=== PATIENT | female | born 1950 | race Two or more races ===

== ENCOUNTER 2018-05-06 10:16 | Outpatient (CLI) | payer OTHER | END 2018-05-06 10:34 | disposition home or self-care (01) | LOC: SONOGRAMA 10:16 | DX: E04.2 Nontoxic multinodular goiter (principal); M25.572 Pain in left ankle and joints of left foot ==

== ENCOUNTER 2018-11-26 08:58 | Outpatient (CLI) | payer OTHER | END 2018-11-26 09:02 | disposition home or self-care (01) | LOC: LAB 08:58 | DX: E03.8 Other specified hypothyroidism (principal); E78.2 Mixed hyperlipidemia; E11.9 Type 2 diabetes mellitus without complications; D63.8 Anemia in other chronic diseases classified elsewhere ==

== ENCOUNTER 2018-11-26 10:20 | Outpatient (CLI) | payer OTHER | END 2018-11-26 10:39 | disposition home or self-care (01) | LOC: MAMO-SONO 10:20 | DX: R10.11 Right upper quadrant pain (principal); M25.512 Pain in left shoulder; N94.0 Mittelschmerz; R10.2 Pelvic and perineal pain; N94.89 Other specified conditions associated with female genital organs and menstrual cycle; N63.10 Unspecified lump in the right breast, unspecified quadrant; N63.20 Unspecified lump in the left breast, unspecified quadrant; N64.59 Other signs and symptoms in breast; N64.89 Other specified disorders of breast ==

== ENCOUNTER 2018-12-08 12:00 | Outpatient (CLI) | payer OTHER ==
[2019-01-14] MEDS ORDERED: SINGULAIR 10MG10 MG PO (11:47)
[2019-01-14] MEDS ORDERED: ZESTRIL20 MG PO (11:47)
[2019-01-14] MEDS ORDERED: CIDAFLEX TABLE1 EACH PO (11:48)
[2019-01-14] MEDS ORDERED: VITAMIN B-121000 MC2 SL (11:48)
[2019-01-14] MEDS ORDERED: LIPITOR20 MG PO (11:48)
== END 2018-12-08 12:29 | disposition home or self-care (01) ==
LOC: LAB 12:00
DX: D50.8 Other iron deficiency anemias (principal); D51.8 Other vitamin B12 deficiency anemias; D68.8 Other specified coagulation defects; D68.2 Hereditary deficiency of other clotting factors; I10 Essential (primary) hypertension; E78.49 Other hyperlipidemia; M15.0 Primary generalized (osteo)arthritis; D51.3 Other dietary vitamin B12 deficiency anemia; E55.9 Vitamin D deficiency, unspecified; E56.1 Deficiency of vitamin K

== ENCOUNTER 2019-01-18 06:15 | Day surgery (SDC) | payer OTHER ==
[~2019-01-18 06:15] MED LIST: CIDAFLEX TABLE1 EACH PO; LIPITOR20 MG PO; SINGULAIR 10MG10 MG PO; VITAMIN B-121000 MC2 SL; ZESTRIL20 MG PO
[2019-01-18] MEDS ORDERED: PERCOCET 5-3251 EACH PO (15:01)
[2019-01-18] MEDS ORDERED: NABUMETONE750 MG PO (15:01)
== END 2019-01-18 17:30 | disposition home or self-care (01) ==
LOC: CIR.AMB 06:15 → EDSTATUS 09:00 → CIR.AMB 09:00 → SURG 09:00 → CIR.AMB 13:00
DX: M75.122 Complete rotator cuff tear or rupture of left shoulder, not specified as traumatic (principal)

== ENCOUNTER → 2019-02-04 | Outpatient (CLI) | payer OTHER ==
[~2019-02-04] MED LIST changes: +NABUMETONE750 MG PO; +PERCOCET 5-3251 EACH PO
== END | disposition home or self-care (01) ==
LOC: MRI 08:15
DX: C22.9 Malignant neoplasm of liver, not specified as primary or secondary (principal); R16.0 Hepatomegaly, not elsewhere classified
CPT/HCPCS: 74182

== ENCOUNTER 2019-10-10 06:31 | Day surgery (SDC) | payer OTHER | END 2019-10-10 21:14 | disposition home or self-care (01) | LOC: CIR.AMB 06:31 | PROVIDERS: ATTEND Obstetrics & Gynecology | DX: N84.0 Polyp of corpus uteri (principal); Z20.828 Contact with and (suspected) exposure to other viral communicable diseases ==

== ENCOUNTER 2020-03-21 08:48 | Outpatient (CLI) | payer OTHER | END 2020-03-21 08:56 | disposition home or self-care (01) | LOC: SONOGRAMA 08:48 | PROVIDERS: ATTEND Internal Medicine | DX: Z12.31 Encounter for screening mammogram for malignant neoplasm of breast (principal); Z87.898 Personal history of other specified conditions; N64.4 Mastodynia ==

== ENCOUNTER 2020-08-17 09:43 | Outpatient (CLI) | payer OTHER | END 2020-08-17 09:48 | disposition home or self-care (01) | LOC: RAD 09:43 | PROVIDERS: ATTEND Orthopaedic Surgery | DX: M25.571 Pain in right ankle and joints of right foot (principal); M25.572 Pain in left ankle and joints of left foot ==

== ENCOUNTER 2020-11-30 06:20 | Day surgery (SDC) | payer OTHER ==
[~2020-11-30 06:20] MED LIST changes: +D3 + K2 DOTS 11 EACH PO; +ZOCOR20 MG PO
== END 2020-11-30 18:40 | disposition home or self-care (01) ==
LOC: CIR.AMB 06:20
PROVIDERS: ATTEND Surgery
DX: D05.02 Lobular carcinoma in situ of left breast (principal)